=== PATIENT | male | born 1985 | race African-American/Black ===

== ENCOUNTER 2016-10-07 07:31 | Emergency (ER) | payer OTHER ==
[~2016-10-07] VITALS: Ht 172.7 cm; Wt 87.3 kg
[2016-10-07 08:05] VITALS: BP 132/79
[2016-10-07] MEDS ORDERED: KETOROLAC TROMETHAMINE 10 MG TAB PO ONE (10:00)
--- NOTE | 2016-10-07 11:41 | REP ---
Lumbar spine series: Five views. History: Trauma and pain. Findings: Five views of the lumbar spine show preserved vertebral body heights and normal alignment. No fracture or collapse is seen. Pedicles and posterior elements are intact. Psoas margins are symmetric. Sacrum and SI joints are intact. Impression: Negative lumbar spine radiographs. No fracture seen. Signed by Byron Li MD 10/07/2016 12:35 P
[2016-10-07] MEDS ORDERED: NAPR500T PO (12:00)
== END 2016-10-07 12:18 | disposition home or self-care (01) ==
LOC: M ED 07:31
DX: S33.5XXA Sprain of ligaments of lumbar spine, initial encounter (principal); S49.91XA Unspecified injury of right shoulder and upper arm, initial encounter; X50.0XXA Overexertion from strenuous movement or load, initial encounter; Y92.84 Military training ground as the place of occurrence of the external cause; Y93.89 Activity, other specified; Y99.9 Unspecified external cause status

== ENCOUNTER → 2017-03-25 | Outpatient (CLI) | payer OTHER | LOC: M SLEEP 19:32 | DX: G47.30 Sleep apnea, unspecified (principal) | CPT/HCPCS: 95810 ==

== ENCOUNTER → 2017-04-22 | Outpatient (CLI) | payer OTHER ==
[~2017-04-22] MED LIST: METHACHOLINE KIT (J7674) INH
== END ==
LOC: M CARPUL 12:45
DX: R06.00 Dyspnea, unspecified (principal)

== ENCOUNTER 2017-06-01 16:38 | Emergency (ER) | payer OTHER | END 2017-06-01 18:19 | disposition home or self-care (01) | LOC: M ED 16:38 | DX: S39.012A Strain of muscle, fascia and tendon of lower back, initial encounter (principal); S30.0XXA Contusion of lower back and pelvis, initial encounter; V43.52XA Car driver injured in collision with other type car in traffic accident, initial encounter; Y92.9 Unspecified place or not applicable; Y93.9 Activity, unspecified; J45.909 Unspecified asthma, uncomplicated; G89.29 Other chronic pain; M54.9 Dorsalgia, unspecified | CPT/HCPCS: 72072 ==

== ENCOUNTER 2017-06-02 03:29 | Emergency (ER) | payer OTHER ==
[2017-06-02] MEDS: CYCLOBENZAPRINE 10 MG TAB PO (05:00)
[2017-06-02] MEDS: MORPHINE 4 MG/ML 1ML VIAL/SYRINGE (J2270) IV (05:05)
[2017-06-02] MEDS: ONDANSETRON 4MG/2ML VIAL (J2405) IV (05:10)
[2017-06-02] MEDS: KETOROLAC 30 MG/ML VIAL (J1885) IV (05:10)
[2017-06-02] MEDS ORDERED: NORCO 5/325MG TABLET (BULK FOR ED) PO (06:15)
== END 2017-06-02 06:19 | disposition home or self-care (01) ==
LOC: M ED 03:29
DX: M54.5 Low back pain (principal)
CPT/HCPCS: J2270